=== PATIENT | male | born 1965 | race Caucasian/White ===

== ENCOUNTER 2018-05-24 14:50 | Inpatient (IN) | payer BC ==
[~2018-05-24] VITALS: Ht 177.8 cm; Wt 61.4 kg
[2018-05-24] MEDS ORDERED: IV NORMAL SALINE 1000 ML BAG IV ONE (15:15)
[2018-05-24 15:29] LABS: BASOPHILS # (AUTO) 0.1 K/uL (0.0-8.0); EOSINOPHILS # (AUTO) 0.1 K/uL (0.0-0.7); EOSINOPHILS % (AUTO) 1.5 % (0.0-7.0); HEMATOCRIT 29.8 % (36.7-47.1); HEMOGLOBIN 9.6 g/dL (12.5-16.3); LYMPHOCYTES # (AUTO) 1.5 K/uL (20.0-40.0); LYMPHOCYTES % (AUTO) 24.3 % (20.5-51.5); MEAN CORPUSCULAR HEMOGLOBIN 29.3 uug (23.8-33.4); MEAN CORPUSCULAR HGB CONC 32 g/dL (32.5-36.3); MEAN CORPUSCULAR VOLUME 90.5 fL (73.0-96.2); MONOCYTES # (AUTO) 0.8 K/uL (2.0-10.0); MONOCYTES % (AUTO) 12.7 % (0.0-11.0); NEUTROPHILS # (AUTO) 3.7 K/uL (1.8-8.9); NEUTROPHILS % (AUTO) 60.5 % (38.5-71.5); PLATELET COUNT (AUTO) 269 K/uL (152-348); RED BLOOD CELL COUNT(AUTO) 3.29 MIL/uL (4.06-5.63); WHITE BLOOD COUNT (AUTO) 6.1 K/uL (3.6-10.2)
--- NOTE | 2018-05-24 15:30 | NUR ---
patient went to ct, abdomen soft
[2018-05-24] MEDS ORDERED: ESCI10TA55 PEG (15:33)
[2018-05-24] MEDS ORDERED: LORA0.5T PEG (15:33)
[2018-05-24] MEDS ORDERED: MEMA10TA PEG (15:33)
[2018-05-24] MEDS ORDERED: HYDR2TAB4 PEG (15:33)
[2018-05-24] MEDS ORDERED: LACT1CAP72 PEG (15:33)
[2018-05-24] MEDS ORDERED: CARB-93 PEG (15:33)
[2018-05-24] MEDS ORDERED: ASCO-376 PEG (15:33)
[2018-05-24] MEDS ORDERED: PANT40TA2 PEG (15:33)
[2018-05-24] MEDS ORDERED: IPRA3AMP23 IH (15:33)
[2018-05-24] MEDS ORDERED: VITA-85A PEG (15:33)
[2018-05-24] MEDS ORDERED: COLL30OI TOP (15:33)
[2018-05-24] MEDS ORDERED: RIVA10TA PEG (15:33)
[2018-05-24] MEDS ORDERED: THIA50TA2 PEG (15:33)
[2018-05-24] MEDS ORDERED: LENA5CAP PEG (15:33)
[2018-05-24] MEDS ORDERED: ONDA8TAB6 PO (15:33)
[2018-05-24] MEDS ORDERED: ACET-2154 PEG (15:33)
[2018-05-24] MEDS ORDERED: GABA800T2 PEG (15:33)
[2018-05-24] MEDS ORDERED: VANC125C4 PEG (15:33)
[2018-05-24] MEDS ORDERED: ONDA8TAB6 PEG (15:33)
[2018-05-24] MEDS ORDERED: BALS60OI TP (15:33)
[2018-05-24] MEDS ORDERED: MAGN400T6 PEG (15:33)
[2018-05-24] MEDS ORDERED: ASPI81TA44 PEG (15:33)
[2018-05-24 15:41] LABS: BILIRUBIN,DIRECT 0.1 mg/dL (0.0-0.2); BILIRUBIN,TOTAL 0.3 mg/dL (0.2-1.0); CREATININE 0.8 mg/dL (0.6-1.3); POTASSIUM 3.9 mmol/L (3.5-5.1); TOTAL PROTEIN, SERUM 5.5 g/dL (6.4-8.2)
[2018-05-24 18:21] VITALS: BP 89/58
--- NOTE | 2018-05-24 19:00 | NUR ---
PATIENT ARRIVE AT THE UNIT AROUND 1800. ADMITTED WITH DIAGNOSIS OF ABDOMINAL PAIN. AAOX4. LEGALLY BLIND. IN NO ACUTE DISTRESS IV SITE ON RIGHT AC INTACT AND PATENT. GT SITE ON ABDOMINAL AREA, REMAINS IN PLACE. MORAN CATHETER INTACT AND DRAINING VIA GRAVITY. DENIES ANY PAIN OR SOB AT THIS TIME. NSR ON TELE AT 73/MIN. ROUTINE ADMISSION CARE DONE. PLAN OF CARE INITIATED. SAFETY MEASURE INITIATED AND CALL MORAN WITHIN REACH.
[2018-05-24 19:34] VITALS: BP 90/57
[2018-05-24] MEDS ORDERED: ACETAMINOPHEN 650 MG SUPP.RECT RC PRN (21:15)
[2018-05-24] MEDS ORDERED: ONDANSETRON 4 MG/2 ML VIAL IV PRN (21:15)
[2018-05-24] MEDS ORDERED: LORAZEPAM 2 MG/1 ML VIAL IV PRN (21:15)
[2018-05-24] MEDS ORDERED: IV D5/ 0.9% NACL 1,000 ML IV PRN (21:15)
[2018-05-24] MEDS ORDERED: VANCOMYCIN IV 200 ML IV ONE (21:30)
[2018-05-24] MEDS ORDERED: PIPERACILLIN SODIUM/TAZO 3.375 GM VIAL ONE (21:45)
[2018-05-24] MEDS ORDERED: VANCOMYCIN 1000 MG VIAL ONE (21:45)
[2018-05-24] MEDS: PIPERACILLIN/TAZOBACTAM/D5W 3.375 G in PREMIXED 1 EACH IV SCH (22:15)
[2018-05-24 23:58] VITALS: BP 93/59
[2018-05-25] MEDS: MORPHINE SULFATE 4 MG/1 ML DISP.SYRIN IV PRN ×7 (00:22→22:41)
[2018-05-25] MEDS ORDERED: PIPERACILLIN SODIUM/TAZO 3.375 GM VIAL ONE (02:11)
[2018-05-25 03:22] VITALS: BP 90/55
[2018-05-25] MEDS: PIPERACILLIN/TAZOBACTAM/D5W 3.375 G in PREMIXED 1 EACH IV SCH (05:57)
--- NOTE | 2018-05-25 06:27 | NUR ---
AAOX4. LEGALLY BLIND. IN NO ACUTE DISTRESS. IV SITE ON RIGHT AC INTACT AND PATENT. GT SITE ON ABDOMINAL AREA, REMAINS IN PLACE. MORAN CATHETER INTACT AND DRAINING VIA GRAVITY. DENIES ANY SOB. COMPLAINED OF ABDOMINAL PAIN AND GIVEN MORPHINE PRN PER ORDER AND EFFECTIVE. NSR ON TELE AT 77/MIN. NPO STATUS. SAFETY MEASURE MAINTAINED AND CALL MORAN WITHIN REACH.
[2018-05-25 06:47] LABS: BASOPHILS # (AUTO) 0.1 K/uL (0.0-8.0); BASOPHILS % (AUTO) 1.2 % (0.0-2.0); EOSINOPHILS # (AUTO) 0.2 K/uL (0.0-0.7); EOSINOPHILS % (AUTO) 3.3 % (0.0-7.0); HEMATOCRIT 28.1 % (36.7-47.1); LYMPHOCYTES # (AUTO) 1.4 K/uL (20.0-40.0); LYMPHOCYTES % (AUTO) 29.5 % (20.5-51.5); MEAN CORPUSCULAR HEMOGLOBIN 28.9 uug (23.8-33.4); MEAN CORPUSCULAR HGB CONC 32 g/dL (32.5-36.3); MEAN CORPUSCULAR VOLUME 90.3 fL (73.0-96.2); MONOCYTES # (AUTO) 0.5 K/uL (2.0-10.0); MONOCYTES % (AUTO) 10.8 % (0.0-11.0); NEUTROPHILS # (AUTO) 2.5 K/uL (1.8-8.9); NEUTROPHILS % (AUTO) 55.2 % (38.5-71.5); PLATELET COUNT (AUTO) 246 K/uL (152-348); RED BLOOD CELL COUNT(AUTO) 3.11 MIL/uL (4.06-5.63); WHITE BLOOD COUNT (AUTO) 4.6 K/uL (3.6-10.2)
[2018-05-25 07:04] LABS: BILIRUBIN,TOTAL 0.4 mg/dL (0.2-1.0); CREATININE 0.9 mg/dL (0.6-1.3); MAGNESIUM 1.8 mg/dL (1.8-2.4); PHOSPHOROUS 3.9 mg/dL (2.5-4.9); POTASSIUM 3.4 mmol/L (3.5-5.1)
[2018-05-25 07:20] LABS: THYROID STIMULATING HORMONE 3.616 mIU/mL (0.358-3.740)
[2018-05-25] MEDS ORDERED: VANCOMYCIN IV 1 G in PREMIXED 0 EACH IV SCH (09:00)
[2018-05-25] MEDS: PANTOPRAZOLE SODIUM 40 MG VIAL IV SCH (09:32)
--- NOTE | 2018-05-25 09:44 | NUR ---
Clinical Pharmacy Note: Vancomycin pharmacy to Dose Subjective: To start vanco in this 52 y/o male for indication of "suspected infection" Pt also started on yeny, RN requesting 2nd IV line for extended infusion (not done yet) Objective: weight 61kg height 177cm BUN 29 Scr 0.8 WBC 4.6 temp 98.2 Trough pending tomorrow @ 0630 Assessment/Plan Will start vancomycin 1gm q11hr for estimated trough of 16.65, first dose today at 0900. Trough ordered for tomorrow @ 0630 before 4th scheduled dose. Will check level at that time and adjust as needed. Will change to dose per level if renal function appears unstable as well. Will follow
--- NOTE | 2018-05-25 10:32 | NUR ---
PATIENT COMPLAINED OF ABDOMINAL PAIN 7 OUT OF 10, PAIN 5 OUT OF 10 AFTER PAIN MEDS, PATIENT VERBALIZED "IT HELPED", CONTINUE TO MONITOR
[2018-05-25 11:02] VITALS: BP 94/63
--- NOTE | 2018-05-25 12:16 | NUR ---
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 PT IS VERY THIN AND BONY. G TUBE CLAMPED. G TUBE SITE HAS AREA OF HYPERGRANULAR TISSUE. RECOMMEND SURGICAL CONSULT. ALL SKIN PROTECTION AND WOUND CARE RECOMMENDATIONS DISCUSSED WITH NURSING STAFF. FIRST STEP LOW AIRLOSS MATTRESS ORDERED. WILL SEE PRN. KINCAID IN AGREEMENT WITH PLAN OF CARE. Addendum: 05/25/18 at 1218 by VINI GARCIA RN Amended: Links added.
[2018-05-25] MEDS: POTASSIUM CHLORIDE 20 MEQ in IV D5/ 0.9% NACL 1,000 ML IV PRN (12:20)
[2018-05-25] MEDS ORDERED: PIPERACILLIN/TAZOBACTAM/D5W 3.375 G in PREMIXED 1 EACH IV SCH (14:06)
[2018-05-25 15:12] VITALS: BP 91/64
--- NOTE | 2018-05-25 18:31 | NUR ---
PATIENT SEEN BY DR GOLDBERG, G TUBE REMOVED, CLEANED SITE WITH NORMAL SALINE, AND COVER WITH DRESSING, PATIENT CAN CONSIDER ANOTHER G-TUBE IF NEEDED AFTER THIS SITE HAS HEALED AND INFECTION IS CLEAR IF HE NEEDS IT. PATIENT TO REMAIN NPO UNTIL TOMORROW PER MD. PATIENT ALREADY ON IV ANTIBIOTICS FOR INFECTION
--- NOTE | 2018-05-25 19:00 | NUR ---
PATIENT WAS SEEN BY LIVIER SOTOMAYOR AND DISCONTINUED PT IV ABX. WITH ORDER TO CHANGE MORAN CATHETER AND WILL CARRY OUT.
--- NOTE | 2018-05-25 19:20 | NUR ---
RECEIVED PATIENT LYING IN BED. AAOX4. LEGALLY BLIND. IN NO ACUTE DISTRESS. IV SITE ON RIGHT AC AND LEFT FA INTACT AND PATENT. DRESSING ON ABDOMINAL AREA INTACT. REMOVE OLD MORAN CATHETER, TRIED TO PLACE NEW CATHETER BUT RESISTANCE WAS FELT AND PATENT REFUSED TO TRY FURTHER. CONDOM CATHETER PLACE TO MONITOR FOR URINE OUTPUT. DENIES ANY SOB. NSR ON TELE AT 72/MIN. NPO STATUS. SAFETY MEASURE MAINTAINED AND CALL MORAN WITHIN REACH.
[2018-05-25 22:08] VITALS: BP 92/55
--- NOTE | 2018-05-25 22:37 | NUR ---
SEE NOTES AT 1920. Addendum: 05/25/18 at 2237 by SORAIDA HEREDIA RN Amended: Links added.
[2018-05-26 00:39] VITALS: BP 99/57
[2018-05-26] MEDS: POTASSIUM CHLORIDE 20 MEQ in IV D5/ 0.9% NACL 1,000 ML IV PRN ×2 (05:07→20:24)
[2018-05-26] MEDS: MORPHINE SULFATE 4 MG/1 ML DISP.SYRIN IV PRN ×3 (05:33→20:23)
[2018-05-26 06:16] LABS: BASOPHILS # (AUTO) 0.1 K/uL (0.0-8.0); BASOPHILS % (AUTO) 1.3 % (0.0-2.0); EOSINOPHILS # (AUTO) 0.1 K/uL (0.0-0.7); EOSINOPHILS % (AUTO) 2.5 % (0.0-7.0); HEMATOCRIT 29.4 % (36.7-47.1); HEMOGLOBIN 9.6 g/dL (12.5-16.3); LYMPHOCYTES # (AUTO) 0.6 K/uL (20.0-40.0); LYMPHOCYTES % (AUTO) 11.3 % (20.5-51.5); MEAN CORPUSCULAR HEMOGLOBIN 29.3 uug (23.8-33.4); MEAN CORPUSCULAR HGB CONC 33 g/dL (32.5-36.3); MEAN CORPUSCULAR VOLUME 90.1 fL (73.0-96.2); MONOCYTES # (AUTO) 0.5 K/uL (2.0-10.0); MONOCYTES % (AUTO) 9.9 % (0.0-11.0); NEUTROPHILS # (AUTO) 3.8 K/uL (1.8-8.9); PLATELET COUNT (AUTO) 223 K/uL (152-348); RED BLOOD CELL COUNT(AUTO) 3.26 MIL/uL (4.06-5.63); WHITE BLOOD COUNT (AUTO) 5.1 K/uL (3.6-10.2)
--- NOTE | 2018-05-26 06:20 | NUR ---
AAOX4. IN NO ACUTE DISTRESS. IV SITE ON RIGHT AC AND LEFT FOREARM INTACT AND PATENT. DRESSING ON ABDOMINAL AREA, REMAINS IN PLACE. CONDOM CATHETER REMOVE, PATIENT ABLE TO URINATE USING A URINAL AND ALSO HAS DIAPER ON. DENIES ANY SOB. MORPHINE PRN PER ORDER GIVEN FOR COMPLAIN OF PAIN AND EFFECTIVE. NSR ON TELE AT 82/MIN. NPO STATUS. SAFETY MEASURE MAINTAINED AND CALL MORAN WITHIN REACH.
[2018-05-26 06:25] VITALS: BP 87/55
[2018-05-26 06:42] LABS: BILIRUBIN,TOTAL 0.5 mg/dL (0.2-1.0); CREATININE 0.8 mg/dL (0.6-1.3); MAGNESIUM 1.6 mg/dL (1.8-2.4); PHOSPHOROUS 3.9 mg/dL (2.5-4.9); POTASSIUM 3.5 mmol/L (3.5-5.1); TOTAL PROTEIN, SERUM 4.9 g/dL (6.4-8.2)
[2018-05-26] MEDS: PANTOPRAZOLE SODIUM 40 MG VIAL IV SCH (08:06)
[2018-05-26 11:23] VITALS: BP 103/62
--- NOTE | 2018-05-26 11:37 | NUR ---
pt seen by stephany culver
[2018-05-26] MEDS: MAGNESIUM SULFATE/D5W 100 ML IV SCH ×2 (11:46→13:41)
[2018-05-26] MEDS: METRONIDAZOLE 500 MG/NS 100ML 500 MG in PREMIXED 1 EACH IV SCH ×2 (14:09→21:28)
[2018-05-26] MEDS: VANCOMYCIN IV 1 G in PREMIXED 0 EACH IV SCH (15:07)
--- NOTE | 2018-05-26 15:38 | NUR ---
Clinical Pharmacy Note: Vancomycin pharmacy to Dose Subjective: To restart vanco in this 52 y/o male for indication of "documented infection" (No MD note yet) Objective: weight 61kg height 177cm BUN 12 Scr 0.8 WBC 5.1 temp 98.2 Assessment/Plan Will restart vancomycin 1gm q11hr for estimated trough of 16.65, first dose today at 1530. Will check trough by 4th dose(not ordered yet) and adjust as needed. Will change to dose per level if renal function appears unstable as well. Will follow.
[2018-05-26 16:29] VITALS: BP 90/61
--- NOTE | 2018-05-26 20:00 | NUR ---
Received pt and observed to be sleeping at this time, easily arousable via verbal and tactile stimuli in no acute distress. Pain management provided as ordered. Safe environment implemented. Call light within reach.
[2018-05-26 20:26] VITALS: BP 94/65
[2018-05-27 00:48] VITALS: BP 106/67
[2018-05-27] MEDS: VANCOMYCIN IV 1 G in PREMIXED 0 EACH IV SCH ×2 (01:43→13:11)
[2018-05-27] MEDS: MORPHINE SULFATE 4 MG/1 ML DISP.SYRIN IV PRN ×3 (01:43→09:13)
[2018-05-27 05:08] VITALS: BP 92/62
[2018-05-27] MEDS: METRONIDAZOLE 500 MG/NS 100ML 500 MG in PREMIXED 1 EACH IV SCH ×3 (06:10→21:38)
--- NOTE | 2018-05-27 06:30 | NUR ---
Pain management implemented as ordered. Wound care done, frequent repositioning. Safe environment at all times.
[2018-05-27] MEDS: PANTOPRAZOLE SODIUM 40 MG VIAL IV SCH (08:08)
[2018-05-27 08:14] LABS: CREATININE 0.8 mg/dL (0.6-1.3); MAGNESIUM 1.7 mg/dL (1.8-2.4); POTASSIUM 3.5 mmol/L (3.5-5.1)
[2018-05-27 11:30] VITALS: BP 103/72
--- NOTE | 2018-05-27 11:37 | NUR ---
Clinical Pharmacy Note: Vancomycin pharmacy to Dose Subjective: To restart vanco in this 52 y/o male for indication of "documented infection" (No MD note yet) Objective: weight 61kg height 177cm BUN 8 Scr 0.8 WBC 5.1 (05/26) temp 98.2 Trough pending 05/28 0000 Assessment/Plan Will continue vancomycin 1gm q11hr for estimated trough of 16.65, third dose today at 1330. Trough due tomorrow early am at 0000. RN endorsed to hold dose if Tr >20. Will chekc level in am and adjust as needed. Will follow
[2018-05-27] MEDS: MAGNESIUM SULFATE/D5W 100 ML IV SCH ×2 (14:40→15:42)
[2018-05-27 15:08] VITALS: BP 105/76
[2018-05-27] MEDS: POTASSIUM CHLORIDE 20 MEQ in IV D5/ 0.9% NACL 1,000 ML IV PRN (17:21)
[2018-05-27 20:00] VITALS: BP 94/57
--- NOTE | 2018-05-27 20:00 | NUR ---
Pt observed to be resting at this time, easily arousable via verbal and tactile stimuli. No apparent distress noted at this time. Safe environment, call light within reach.
[2018-05-28] MEDS: VANCOMYCIN IV 1 G in PREMIXED 0 EACH IV SCH ×2 (00:30→09:27)
[2018-05-28] MEDS: MORPHINE SULFATE 4 MG/1 ML DISP.SYRIN IV PRN ×3 (01:25→10:50)
--- NOTE | 2018-05-28 01:36 | NUR ---
Vancomycin trough 26.2, 0030 Vanco IV held as ordered.
[2018-05-28 04:00] VITALS: BP 107/72
[2018-05-28 05:49] LABS: CREATININE 0.8 mg/dL (0.6-1.3); MAGNESIUM 1.8 mg/dL (1.8-2.4); POTASSIUM 3.1 mmol/L (3.5-5.1)
[2018-05-28] MEDS: POTASSIUM CHLORIDE 20 MEQ in IV D5/ 0.9% NACL 1,000 ML IV PRN ×2 (06:06→21:54)
[2018-05-28] MEDS: METRONIDAZOLE 500 MG/NS 100ML 500 MG in PREMIXED 1 EACH IV SCH ×3 (06:06→21:54)
--- NOTE | 2018-05-28 06:40 | NUR ---
Wound care done as ordered. Frequent repositioning. Pain management provided as ordered. Safe environment implemented.
[2018-05-28] MEDS: PANTOPRAZOLE SODIUM 40 MG VIAL IV SCH (08:03)
[2018-05-28] MEDS ORDERED: POTASSIUM CHLORIDE 20 MEQ TAB.PRT.SR PO ONE (08:45)
[2018-05-28 11:18] VITALS: BP 108/68
--- NOTE | 2018-05-28 12:58 | NUR ---
Clinical Pharmacy Note: Vancomycin pharmacy to Dose Subjective: To continue vanco in this 52 y/o male for indication of "documented infection" (No MD note yet) Objective: weight 61kg height 177cm BUN 6 Scr 0.8 WBC 5.1 (05/26) temp 98.5 Trough 05/28 0000: 26.2 Assessment/Plan Due to high level, last night dose held. Regimen changed from 1gm q11 to 1gm q15h for new estimated trough of 16.1. First dose was today at 1000. Will order trough before 4th scheduled dose (not ordered yet). Will adjust or dose per level if renal function or condition were to change as well. Otherwise, will order/check torugh adjust as needed. Will follow
[2018-05-28 15:23] VITALS: BP 105/66
--- NOTE | 2018-05-28 19:10 | NUR ---
RECEIVED PT ON BED, NO SIGNS OF RESPIRATORY DISTRESS NOTED AT THIS TIME. PT C/O OF PAIN ON ABDOMEN WITH PAIN SCALE OF 7, REQUESTING FOR PAIN MEDICATION. IV SITE ON R HAND, PATENT AND INTACT. SAFETY MEASURES INITIATED. PT BELONGINGS AND CALL MORAN WITHIN REACH.
--- NOTE | 2018-05-28 19:40 | NUR ---
BP CHECKED 92/65, INFORMED PT MORPHINE PRN CANT BE GIVEN DUE TO DECREASED BLOOD PRESSURE LEVEL, PT VERBALIZED UNDERSTANDING. OFFERED TYLENOL PRN, PT REFUSED.
[2018-05-28 20:00] VITALS: BP 93/60
[2018-05-29] MEDS: VANCOMYCIN IV 1 G in PREMIXED 0 EACH IV SCH ×2 (01:31→16:00)
[2018-05-29 04:00] VITALS: BP 106/67
[2018-05-29] MEDS: METRONIDAZOLE 500 MG/NS 100ML 500 MG in PREMIXED 1 EACH IV SCH ×2 (06:05→14:00)
[2018-05-29 06:33] LABS: BASOPHILS % (AUTO) 0.9 % (0.0-2.0); EOSINOPHILS % (AUTO) 1.1 % (0.0-7.0); HEMATOCRIT 28.2 % (36.7-47.1); HEMOGLOBIN 9.1 g/dL (12.5-16.3); LYMPHOCYTES # (AUTO) 1.2 K/uL (20.0-40.0); LYMPHOCYTES % (AUTO) 26.8 % (20.5-51.5); MEAN CORPUSCULAR HEMOGLOBIN 29.1 uug (23.8-33.4); MEAN CORPUSCULAR HGB CONC 32 g/dL (32.5-36.3); MEAN CORPUSCULAR VOLUME 90.1 fL (73.0-96.2); MONOCYTES # (AUTO) 0.5 K/uL (2.0-10.0); MONOCYTES % (AUTO) 11.6 % (0.0-11.0); NEUTROPHILS # (AUTO) 2.6 K/uL (1.8-8.9); NEUTROPHILS % (AUTO) 59.6 % (38.5-71.5); RED BLOOD CELL COUNT(AUTO) 3.13 MIL/uL (4.06-5.63); WHITE BLOOD COUNT (AUTO) 4.3 K/uL (3.6-10.2)
[2018-05-29 06:47] LABS: PLATELET COUNT (AUTO) 166 K/uL (152-348)
[2018-05-29 06:48] LABS: BILIRUBIN,TOTAL 0.3 mg/dL (0.2-1.0); CREATININE 0.8 mg/dL (0.6-1.3); MAGNESIUM 1.4 mg/dL (1.8-2.4); PHOSPHOROUS 2.9 mg/dL (2.5-4.9); POTASSIUM 3.7 mmol/L (3.5-5.1); TOTAL PROTEIN, SERUM 4.7 g/dL (6.4-8.2)
--- NOTE | 2018-05-29 07:35 | NUR ---
pt resting comfortably on bed. no signs of acute distress noted at this time. skin care and peg care provided. all needs anticipated and attended. safe environment maintained at all times, call bustamante within reach.
--- NOTE | 2018-05-29 08:00 | NUR ---
RESTING WELL IN BED NO PAIN OR SOB ON ASPIRATION AND FALL PRECAUTION BED ALARM ON AND CALL LIGHT IN REACH ,IV WAS OUT WILL RESTART LATER
[2018-05-29] MEDS: PROTEIN SUPPLEMENT (PROSTAT) 30 ML LIQUID PO SCH ×3 (08:45→17:00)
[2018-05-29] MEDS: PANTOPRAZOLE SODIUM 40 MG VIAL IV SCH (09:00)
--- NOTE | 2018-05-29 11:30 | NUR ---
DR KLEIN SEE PATIENT AND LAB RESULT INFORM NEW ORDER IN CHART
[2018-05-29 11:43] VITALS: BP 114/78
[2018-05-29] MEDS ORDERED: MAGNESIUM OXIDE 400 MG TABLET PO ONE (11:45)
[2018-05-29] MEDS ORDERED: PANTOPRAZOLE SODIUM 40 MG TABLET.DR PO SCH (12:00)
--- NOTE | 2018-05-29 12:51 | NUR ---
Clinical Pharmacy Note: Vancomycin pharmacy to Dose Subjective: To continue vanco in this 52 y/o male for indication of GT cellulitis(ID note) Objective: weight 61kg height 177cm BUN 5 Scr 0.8 WBC 4.3 temp 98.3 Assessment/Plan Continue Vancomycin 1gm q15h for new estimated trough of 16.1. Third dose is today at 1600. Will order trough before 4th scheduled dose (ordered for tomorrow at 0630) and endorse nurse to hold for over 20. Will adjust or dose per level if renal function or condition were to change as well. Otherwise, will order/check trough and adjust as needed. Will follow
[2018-05-29] MEDS: MORPHINE SULFATE 4 MG/1 ML DISP.SYRIN IV PRN (14:02)
--- NOTE | 2018-05-29 15:00 | NUR ---
D/C INSTRUCTION REGARDING F/U WITH OWN PMD CONTIONUE HOME MEDICINE AND EDUCATION PK GAVE ,VERBALIZES UNDERSTAND IV WAS DISCONTINUED
[2018-05-29 15:32] VITALS: BP 92/58
--- NOTE | 2018-05-29 16:00 | NUR ---
REPORT GIVEN TO NURSE "ROLF" VIA TEL AND FAMILY ,DPOA AND [employer] WAS INFORM OF D/C BACK TO [facility] CASHIER WILL WORKING ON TRANSFER TO ANOTHER FACILITY LATER ON PER JOEL
--- NOTE | 2018-05-29 18:00 | NUR ---
RESTING STABLE HEMODYNAMIC NO ACUTE DISTRESS ,PAIN UNDER CONTROL SAFETY MEASURE PROVIDED CALL LIGHT IN REACH AND BED ALARM ON
--- NOTE | 2018-05-29 18:35 | NUR ---
DR SAENZ HERE AND CLEAN WOUND DEBRIDEMENT AND DSG CHANGE
--- NOTE | 2018-05-29 19:00 | NUR ---
D/C TO [facility] ,CONDITION STABLE
== END 2018-05-29 19:00 | DRG 393 ==
LOC: ER 14:50 → TELE 17:36 → MED 05-26 20:45
PROVIDERS: ADMIT Internal Medicine; ATTEND Internal Medicine
PROC: 2W53XYZ Removal of Other Device on Abdominal Wall (ICD-10-PCS; principal; 2018-05-25)
DX: K94.22 Gastrostomy infection (principal); A41.9 Sepsis, unspecified organism; J69.0 Pneumonitis due to inhalation of food and vomit; E43 Unspecified severe protein-calorie malnutrition; L89.154 Pressure ulcer of sacral region, stage 4; L03.311 Cellulitis of abdominal wall; D68.59 Other primary thrombophilia; Z68.1 Body mass index [BMI] 19.9 or less, adult; C85.88 Other specified types of non-Hodgkin lymphoma, lymph nodes of multiple sites; J98.11 Atelectasis; K94.23 Gastrostomy malfunction; N20.0 Calculus of kidney; Z86.718 Personal history of other venous thrombosis and embolism; Z79.01 Long term (current) use of anticoagulants; Z74.09 Other reduced mobility; I11.9 Hypertensive heart disease without heart failure; H54.8 Legal blindness, as defined in USA; K59.00 Constipation, unspecified; R62.7 Adult failure to thrive; Z92.21 Personal history of antineoplastic chemotherapy; L89.100 Pressure ulcer of unspecified part of back, unstageable; R13.10 Dysphagia, unspecified; E87.6 Hypokalemia; D50.9 Iron deficiency anemia, unspecified; G20 Parkinson's disease; Z86.19 Personal history of other infectious and parasitic diseases; R94.8 Abnormal results of function studies of other organs and systems
CPT/HCPCS: 36415; 70030-TC; 71045; 83550; 83690; 83735; 84100; 84443; 85025; 85730; 92610; 93005; A4663; C9113; G0378; J2270; J2543; J3370; J3475; J3480; J3490; J7030; J7042; J7050; J7060